=== PATIENT | female | born 1995 | race Caucasian/White ===

== ENCOUNTER 2017-12-15 08:36 | Emergency (ER) | payer BC ==
[2017-12-15] MEDS ORDERED: ONDANSETRON HCL 4 MG TAB.RAPDIS PO ONE (08:38)
[2017-12-15] MEDS ORDERED: THIAMINE HCL 100 MG, MULTIVIT INFUSN,ADULT 1,VIT K 10 ML, FOLIC ACID 5 MG in 0.9 % SODI... IV SCH (08:38)
[2017-12-15] MEDS ORDERED: THIAMINE HCL 100 MG/ML 2ML VIAL ONE (08:40)
[2017-12-15] MEDS ORDERED: FOLIC ACID 5 MG/1 ML ONE (08:41)
[2017-12-15] MEDS ORDERED: MULTIVIT INFUSN,ADULT 1,VIT K 10 ML VIAL IV ONE (08:41)
[2017-12-15] MEDS ORDERED: ONDANSETRON HCL 4 MG TAB.RAPDIS ONE (08:42)
--- NOTE | 2017-12-15 08:44 | ED Physician Documentation ---
General Adult - HISTORIAN Historian: patient, spouse - HPI Stated Complaint: Alcohol Intoxication Chief Complaint: Altered Mental Status Additional Information: Patient states that she got last night at the [employer] here in [place] and admits to drinking to much Vodka and Cassandra. She is accompanied by her who states that she had a few drinks as well last night trying to keep up with some others. He brought her in this morning concerned because she was lethargic and thought she was having some seizure activity (patient jerking to the extremities). S.O. stated he tried to get her to eat this morning but she felt to nauseous to try. Patient is awake and able to answer questions. She states that she was drinking with some of the guys last night and was trying to keep up- "I didn't want to be a wuss" she said. Onset: other (Last night) Timing: still present Severity: moderate Modifying Factors: consumption of alcohol use/ Wedding - ROS CONST: chills EYES/ENT: none CVS/RESP: none GI/: nausea MS/SKIN/LYMPH: none NEURO/PSYCH: difficulty walking (due to intoxication), other (spouse states that patient has been lethargic this morning) - PAST HX Past History: none Other History: none Surgeries/Procedures: Immunizations: UTD Allergies/Adverse Reactions: Allergies Allergy/AdvReac Type Severity Reaction Status Date / Time Penicillins Allergy Verified 12/15/17 08:56 sulfamethoxazole AdvReac Hives Verified 12/15/17 08:56 [From Bactrim] trimethoprim [From Bactrim] AdvReac Hives Verified 12/15/17 08:56 Home Medications: Ambulatory Orders Medication Instructions Recorded NK [NK] 12/15/17 - SOCIAL HX Smoking History: cigarettes Alcohol Use: occasionally Drug Use: none - FAMILY HX Family History: No - REVIEWED ASSESSMENTS Nursing Assessment Reviewed: Yes Vitals Reviewed: Yes Progress - Results/Orders Results/Orders: Patient receiving 2nd liter of fluids- feeling much better- awake, alert and oriented x 4. Patient is warm no longer shaking- saltine crackers given to patient (she denies any nausea). Will continue fluids until patient is able to void and then will discharge to home with ED Results Lab/Radiology - Orders Orders: ED Orders Category Date Time Status Place IV Lock 1T Care 12/15/17 08:38 Ordered CBC/PLATELET/DIFF Routine Lab 12/15/17 Ordered CMP Routine Lab 12/15/17 Ordered ETHANOL REF Stat Lab 12/15/17 Ordered Ondansetron HCl Rapdis [Zofran Odt] Med 12/15/17 08:38 Once 4 mg PO NOW ONE Thiamine HCl 100 mg Med 12/15/17 08:38 Ordered Multivit Infusn,Adult 1,Vit K [M.v.i. Adult] 10 ml Folic Acid [Folvite] 5 mg 0.9 % Sodium Chloride [Normal Saline] 1,000 ml IV Q8 General Adult Physical Exam - PHYSICAL EXAM GENERAL APPEARANCE: mild distress EENT: eye inspection normal NECK: normal inspection RESPIRATORY: no resp distress, breath sounds normal. No: wheezes, rales, rhonchi CVS: reg rate & rhythm, heart sounds normal, equal pulses. No: no murmur ABDOMEN: soft, normal bowel sounds, no distension BACK: normal inspection SKIN: warm/dry, normal color EXTREMITIES: non-tender, normal range of motion NEURO: oriented X3, speech/cognition abnml (speech slightly slurred- improves with conversation) Discharge Clincal Impression: Alcohol use, Alcohol ingestion Referrals: Primary Doctor,No [Primary Care Provider] - 2 Days Additional Instructions: 1. Increase fluid intake to 8-8oz glasses of water. May drink 2/3 Gatorade & 1/ 3 water. 2. Small meals today- avoid spicy, greasy, and fatty foods. 3. No more alcohol Condition: Good Disposition: 01 HOME, SELF-CARE Decision to Admit: NO Decision Time: 12:22
[2017-12-15 09:07] LABS: BASOPHILS % 0.2 (0.0-1.5); EOSINOPHILS % 0.7 % (0.0-6.8); MEAN CORPUSCULAR HEMOGLOBIN 27.5 pg (28.0-34.0); MEAN CORPUSCULAR VOLUME 86.2 fl (80.0-100.0); MONOCYTES % 7.4 % (0.0-11.0); NEUTROPHILS # 4.7 # k/uL (1.4-7.7)
[2017-12-15 09:16] LABS: eGFR (African) > 60; eGFR (Non-African) > 60
[2017-12-15] MEDS ORDERED: 0.9 % SODIUM CHLORIDE 1,000 ML IV ONE (09:42)
[2017-12-15 09:53] VITALS: BP 92/47
== END 2017-12-15 10:10 | disposition home or self-care (01) ==
LOC: ED 08:36
DX: F10.129 Alcohol abuse with intoxication, unspecified (principal)
CPT/HCPCS: 80053; 80320; 85025; 96365; 96368; 99283; A9270; J3411; J3490; J7030; G0480; S1016